=== PATIENT | male | born 1950 ===

== ENCOUNTER 2017-05-16 16:56 | Emergency (ER) | payer BC, MEDICARE, OTHER ==
[2017-05-16 17:08] VITALS: BP 124/58
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
--- NOTE | 2017-05-16 18:01 | RAD ---
INDICATION: Left shoulder injury COMPARISON: None TECHNIQUE: Routine frontal, Y and axial views were obtained. FINDINGS: The bony structures, joint spaces, and soft tissues are normal for age. IMPRESSION: NEGATIVE EXAMINATION.
== END 2017-05-16 18:16 | disposition home or self-care (01) ==
LOC: UCCORT 16:56
DX: S40.012A Contusion of left shoulder, initial encounter (principal); Y92.9 Unspecified place or not applicable; Y99.9 Unspecified external cause status; V28.0XXA Motorcycle driver injured in noncollision transport accident in nontraffic accident, initial encounter; Y93.9 Activity, unspecified; K21.9 Gastro-esophageal reflux disease without esophagitis; Z72.0 Tobacco use
CPT/HCPCS: 99211; G0463